=== PATIENT | female | born 1980 | race Caucasian/White ===

== ENCOUNTER 2017-02-16 19:08 | Emergency (ER) | payer MEDICAID ==
[~2017-02-16] VITALS: Ht 167.6 cm; Wt 90.9 kg
[~2017-02-16 19:08] MED LIST: CARV25 PO; CARV3 PO; ENAL2.5 PO; FURO40 PO; HYDR-4173 PO; ISOS20TA9 PO
[2017-02-16] MEDS ORDERED: DEXAMETHASONE SOD PHOS 4 MG/ML 5 ML VIAL IM ONE (20:15)
[2017-02-16] MEDS ORDERED: DiphenhydrAMINE HCL 50 MG/ML VIAL IM ONE (20:15)
[2017-02-16] MEDS ORDERED: PERTUSS(ACELL),DIPH,TET VAC/PF 0.5 ML VIAL IM ONE (20:15)
[2017-02-16 20:39] VITALS: BP 145/92
== END 2017-02-16 20:46 | disposition home or self-care (01) ==
LOC: EMS 19:12
DX: T63.481A Toxic effect of venom of other arthropod, accidental (unintentional), initial encounter (principal); M79.632 Pain in left forearm; L53.9 Erythematous condition, unspecified; I10 Essential (primary) hypertension; Z79.899 Other long term (current) drug therapy; Z91.013 Allergy to seafood; W57.XXXA Bitten or stung by nonvenomous insect and other nonvenomous arthropods, initial encounter; Y93.89 Activity, other specified; Y92.89 Other specified places as the place of occurrence of the external cause; Y99.8 Other external cause status
CPT/HCPCS: 90471; 90715; 96372; 99284; J1100

== ENCOUNTER 2017-08-14 12:28 | Emergency (ER) | payer MEDICAID ==
[~2017-08-14] VITALS: Ht 165.1 cm; Wt 90.9 kg
[~2017-08-14 12:28] MED LIST changes: -CARV3 PO
[2017-08-14 12:40] VITALS: BP 149/90
[2017-08-14] MEDS ORDERED: FERR-89 PO (13:07)
[2017-08-14] MEDS ORDERED: SPIR25 PO (13:07)
== END 2017-08-14 13:07 | disposition left against medical advice (07) ==
LOC: EMS 12:34
DX: Z53.21 Procedure and treatment not carried out due to patient leaving prior to being seen by health care provider (principal)

== ENCOUNTER 2017-08-14 19:15 | Emergency (ER) | payer MEDICAID ==
[~2017-08-14] VITALS: Ht 166.4 cm; Wt 90.9 kg
[~2017-08-14 19:15] MED LIST changes: +FERR-89 PO; +SPIR25 PO
[2017-08-14 21:05] LABS: BASOPHILS % (AUTO) 0.8 % (0.0-2.0); EOSINOPHILS % (AUTO) 4.9 % (1.0-6.0); HEMATOCRIT 40.8 % (36-46); HEMOGLOBIN 13.7 g/dL (12.0-16.0); LYMPHOCYTES # (AUTO) 2.3 K/uL (1.0-4.8); LYMPHOCYTES % (AUTO) 28.8 % (22.0-44.0); MEAN CORPUSCULAR HEMOGLOBIN 27.6 pg (26.0-34.0); MEAN CORPUSCULAR HGB CONC 33.5 G/dL (31.0-37.0); MEAN CORPUSCULAR VOLUME 82 fL (80-100); MONOCYTES # (AUTO) 0.6 K/uL (0.1-1.0); MONOCYTES % (AUTO) 7.4 % (2.0-9.0); NEUTROPHILS # (AUTO) 4.7 K/uL (1.8-7.7); NEUTROPHILS % (AUTO) 58.1 % (40.0-70.0); PLATELET COUNT (AUTO) 369 K/uL (150-450); RED BLOOD CELL COUNT(AUTO) 4.95 MIL/uL (4.00-5.20); RED CELL DISTRIBUTION WIDTH 14.1 % (11.5-14.5)
[2017-08-14 21:16] LABS: ANION GAP 10 mmol/L (8-16); CALCIUM, TOTAL 8.8 mg/dL (8.8-10.5); CARBON DIOXIDE 29 mmol/L (22-29); CHLORIDE 102 mmol/L (98-107); CREATININE 0.89 mg/dL (0.60-1.30); GLOMERULAR FILTR. RATE CALC > 60 mL/min (>60); GLUCOSE,RANDOM 108 mg/dL (70-110); POTASSIUM 3.8 mmol/L (3.5-5.1); SODIUM SERUM 141 mmol/L (136-145); UREA NITROGEN, BLOOD 20 mg/dL (7-18)
[2017-08-14 21:22] LABS: ALANINE AMINOTRANSFERASE 29 U/L (12-78); ALKALINE PHOSPHATASE 64 U/L (46-116); ASPARTATE AMINOTRANSFERASE 23 U/L (15-37); BILIRUBIN,TOTAL 0.4 mg/dL (0.1-1.0); TOTAL PROTEIN, SERUM 8.1 g/dL (6.4-8.2)
[2017-08-14 21:35] LABS: B-TYPE NATRIURETIC PEPTIDE < 5 pg/mL (0-100)
[2017-08-15 01:09] LABS: APPEARANCE,URINE CLOUDY (CLEAR); BILIRUBIN,URINE NEGATIVE (NEGATIVE); GLUCOSE, URINE (UA) NEGATIVE (NEGATIVE); KETONES,URINE NEGATIVE (NEGATIVE); LEUKOCYTE ESTERASE ,URINE NEGATIVE (NEGATIVE); NITRATE,URINE NEGATIVE (NEGATIVE); OCCULT BLOOD,URINE LARGE (NEGATIVE); PROTEIN,URINE TRACE (NEGATIVE)
[2017-08-15 01:13] LABS: AMPHET/METH SCREEN,URINE POSITIVE (NEGATIVE); BARBITURATE SCREEN, URINE NEGATIVE (NEGATIVE); BENZODIAZEPINES SCREEN,URINE NEGATIVE (NEGATIVE); CANNABINOID SCREEN,URINE NEGATIVE (NEGATIVE); COCAINE SCREEN,URINE NEGATIVE (NEGATIVE); METHADONE SCREEN, URINE NEGATIVE (NEGATIVE); OPIATE SCREEN,URINE NEGATIVE (NEGATIVE)
[2017-08-15 01:14] LABS: PHENCYCLIDINE SCREEN,URINE NEGATIVE (NEGATIVE)
[2017-08-15 01:37] LABS: BACTERIA,URINE Few /HPF (None Seen); MUCUS,URINE Many LPF (None Seen); SQUAMOUS EPITHELIAL CELL,UR Moderate /LPF (None Seen); WBC,URINE 0-2 /HPF (0-5)
[2017-08-15 01:38] VITALS: BP 134/99
== END 2017-08-15 01:39 | disposition home or self-care (01) ==
LOC: EMS 19:16
DX: N93.9 Abnormal uterine and vaginal bleeding, unspecified (principal); F15.10 Other stimulant abuse, uncomplicated; R07.89 Other chest pain; I11.0 Hypertensive heart disease with heart failure; I25.10 Atherosclerotic heart disease of native coronary artery without angina pectoris; Z79.899 Other long term (current) drug therapy
CPT/HCPCS: 93005; 99285

== ENCOUNTER 2020-12-15 16:39 | Emergency (ER) | payer MEDICAID ==
[~2020-12-15] VITALS: Ht 165.1 cm; Wt 98.0 kg
[~2020-12-15 16:39] MED LIST changes: -ENAL2.5 PO; -HYDR-4173 PO; -ISOS20TA9 PO
[2020-12-15] MEDS ORDERED: CARV6 PO (17:03)
[2020-12-15] MEDS ORDERED: LISI-894 PO (17:03)
[2020-12-15 17:09] VITALS: BP 147/96
== END 2020-12-15 19:30 | disposition left against medical advice (07) ==
LOC: EMS 16:39
DX: T19.2XXA Foreign body in vulva and vagina, initial encounter (principal); I11.0 Hypertensive heart disease with heart failure; I50.9 Heart failure, unspecified; Z79.899 Other long term (current) drug therapy; W45.8XXA Other foreign body or object entering through skin, initial encounter; Y93.89 Activity, other specified; Y92.89 Other specified places as the place of occurrence of the external cause; Y99.8 Other external cause status
CPT/HCPCS: 99281; Z7502

== ENCOUNTER 2021-02-19 22:53 | Emergency (ER) | payer MEDICAID ==
[~2021-02-19] VITALS: Ht 165.1 cm; Wt 95.5 kg
[~2021-02-19 22:53] MED LIST changes: -CARV25 PO; +CARV6 PO; -FERR-89 PO; +LISI-894 PO; +SPIR-37 PO; -SPIR25 PO
[2021-02-20 00:34] VITALS: BP 173/102
== END 2021-02-20 00:49 | disposition left against medical advice (07) ==
LOC: EMS 22:53
DX: S50.11XA Contusion of right forearm, initial encounter (principal); I11.0 Hypertensive heart disease with heart failure; I50.9 Heart failure, unspecified; Z79.899 Other long term (current) drug therapy; Z91.81 History of falling; W19.XXXA Unspecified fall, initial encounter; Y93.01 Activity, walking, marching and hiking; Y92.89 Other specified places as the place of occurrence of the external cause; Y99.8 Other external cause status
CPT/HCPCS: 99281; Z7502

== ENCOUNTER 2021-09-30 22:06 | Emergency (ER) | payer MEDICAID ==
[~2021-09-30] VITALS: Ht 182.9 cm; Wt 100.0 kg
[2021-09-30 22:09] VITALS: BP 197/108
== END 2021-09-30 22:59 | disposition left against medical advice (07) ==
LOC: EMS 22:07
DX: N19 Unspecified kidney failure (principal); Z53.21 Procedure and treatment not carried out due to patient leaving prior to being seen by health care provider

== ENCOUNTER 2021-12-16 02:23 | Emergency (ER) | payer MEDICAID ==
[~2021-12-16] VITALS: Ht 182.9 cm; Wt 98.0 kg
[2021-12-16 06:10] VITALS: BP 126/75
[2021-12-16] MEDS ORDERED: CEPH-558 PO (06:17)
== END 2021-12-16 06:40 | disposition home or self-care (01) ==
LOC: EMS 02:25
DX: T19.2XXA Foreign body in vulva and vagina, initial encounter (principal); I11.0 Hypertensive heart disease with heart failure; I50.9 Heart failure, unspecified; Z88.0 Allergy status to penicillin; Z91.013 Allergy to seafood; Z79.899 Other long term (current) drug therapy; W45.8XXA Other foreign body or object entering through skin, initial encounter; Y93.89 Activity, other specified; Y92.89 Other specified places as the place of occurrence of the external cause; Y99.8 Other external cause status
CPT/HCPCS: 99285; Z7502

== ENCOUNTER 2022-01-19 03:08 | Emergency (ER) | payer MEDICAID ==
[~2022-01-19] VITALS: Ht 172.7 cm; Wt 109.1 kg
[~2022-01-19 03:08] MED LIST changes: +CEPH-558 PO
[2022-01-19] MEDS ORDERED: CARV6 PO ×2 (03:23→05:35)
[2022-01-19] MEDS ORDERED: FERR325T27 PO (03:54)
[2022-01-19 03:58] VITALS: BP 145/98
[2022-01-19 04:05] LABS: BASOPHILS % (AUTO) 1.1 % (0.0-2.0); EOSINOPHILS % (AUTO) 2.8 % (1.0-6.0); HEMATOCRIT 37.1 % (36-46); HEMOGLOBIN 11.9 g/dL (12.0-16.0); LYMPHOCYTES # (AUTO) 2.4 K/uL (1.0-4.8); LYMPHOCYTES % (AUTO) 26.8 % (22.0-44.0); MEAN CORPUSCULAR HEMOGLOBIN 23.2 pg (26.0-34.0); MEAN CORPUSCULAR HGB CONC 32.1 G/dL (31.0-37.0); MEAN CORPUSCULAR VOLUME 72 fL (80-100); MONOCYTES # (AUTO) 0.6 K/uL (0.1-1.0); MONOCYTES % (AUTO) 6.9 % (2.0-9.0); NEUTROPHILS # (AUTO) 5.6 K/uL (1.8-7.7); NEUTROPHILS % (AUTO) 62.4 % (40.0-70.0); PLATELET COUNT (AUTO) 329 K/uL (150-450); RED BLOOD CELL COUNT(AUTO) 5.12 MIL/uL (4.00-5.20); RED CELL DISTRIBUTION WIDTH 15.2 % (11.5-14.5)
[2022-01-19 04:13] LABS: ANION GAP 9 mmol/L (8-16); CALCIUM, TOTAL 8.9 mg/dL (8.8-10.5); CARBON DIOXIDE 27 mmol/L (22-29); CHLORIDE 103 mmol/L (98-107); CREATININE 0.88 mg/dL (0.60-1.30); GLOMERULAR FILTR. RATE CALC > 60 mL/min (>60); GLUCOSE,RANDOM 106 mg/dL (70-110); POTASSIUM 3.6 mmol/L (3.5-5.1); SODIUM SERUM 139 mmol/L (136-145); UREA NITROGEN, BLOOD 13 mg/dL (7-18)
[2022-01-19 04:20] LABS: PLATELET MORPHOLOGY COMMENT GIANT PLTS PRESENT
[2022-01-19 04:21] LABS: ALANINE AMINOTRANSFERASE 22 U/L (12-78); ALBUMIN 3.9 g/dL (3.4-5.0); ALKALINE PHOSPHATASE 64 U/L (46-116); ASPARTATE AMINOTRANSFERASE 12 U/L (15-37); BILIRUBIN,TOTAL 0.4 mg/dL (0.1-1.0); TOTAL PROTEIN, SERUM 7.5 g/dL (6.4-8.2)
[2022-01-19] MEDS ORDERED: CARVEDILOL 6.25 MG TABLET PO ONE (05:00)
[2022-01-19] MEDS ORDERED: FURO-151 PO (05:36)
[2022-01-19] MEDS ORDERED: FURO-152 PO (05:37)
[2022-01-19] MEDS ORDERED: LISI-662 PO (05:37)
[2022-01-19] MEDS ORDERED: SPIR-37 PO (05:38)
== END 2022-01-19 05:20 | disposition left against medical advice (07) ==
LOC: EMS 03:13
DX: R07.89 Other chest pain (principal); I11.0 Hypertensive heart disease with heart failure; I50.9 Heart failure, unspecified; Z87.09 Personal history of other diseases of the respiratory system; Z88.0 Allergy status to penicillin; Z91.013 Allergy to seafood; Z76.0 Encounter for issue of repeat prescription
CPT/HCPCS: 71045; 80053; 84484; 85025; 85379; 93005; 99285; 36415-L1; 36415-TC

== ENCOUNTER 2022-12-12 04:07 | Emergency (ER) | payer OTHER, MEDICAID ==
[~2022-12-12] VITALS: Ht 165.1 cm; Wt 91.0 kg
[~2022-12-12 04:07] MED LIST changes: +FERR325T27 PO; +FURO-152 PO; +LISI-662 PO
[2022-12-12 04:18] VITALS: BP 182/105
== END 2022-12-12 07:03 | disposition left against medical advice (07) ==
LOC: EMS 04:09
DX: Z53.21 Procedure and treatment not carried out due to patient leaving prior to being seen by health care provider (principal)
CPT/HCPCS: 99281; Z7502

== ENCOUNTER 2024-03-24 15:01 | Emergency (ER) | payer MEDICAID, OTHER ==
[~2024-03-24] VITALS: Ht 162.6 cm; Wt 100.0 kg
[~2024-03-24 15:01] MED LIST changes: -CEPH-558 PO; -FURO-152 PO; -LISI-662 PO
[2024-03-24 15:20] VITALS: BP 150/86; PULSE 84; RESP 18; TEMP 98
== END 2024-03-24 17:33 | disposition home or self-care (01) ==
LOC: EMS 15:11
DX: T19.2XXA Foreign body in vulva and vagina, initial encounter (principal); I11.0 Hypertensive heart disease with heart failure; I50.9 Heart failure, unspecified; Z88.0 Allergy status to penicillin; Z91.013 Allergy to seafood; W44.8XXA Other foreign body entering into or through a natural orifice, initial encounter; Y93.89 Activity, other specified; Y92.89 Other specified places as the place of occurrence of the external cause; Y99.8 Other external cause status
CPT/HCPCS: 99284; Z7502